=== PATIENT | female | born 1930 | race Two or more races ===

== ENCOUNTER 2021-06-19 09:02 | Emergency (ER) | payer OTHER ==
[~2021-06-19] VITALS: Ht 160 cm; Wt 63.0 kg
[~2021-06-19 09:02] MED LIST: CILOSTAZOL50 MG; GABAPENTIN600 MG; GLIPIZIDE10 MG; HYDROCHLOROTHIA25 MG; IRBESARTAN300 MG; LANTUS100 U/ML; METFORMIN HCL500 MG; METOPROLOL SUCC50 MG; SIMVASTATIN80 MG
[2021-06-19] MEDS ORDERED: FEMARA2.5 MG (09:15)
== END 2021-06-19 12:21 | disposition home or self-care (01) ==
LOC: ER 09:02
DX: J45.998 Other asthma (principal); Z03.818 Encounter for observation for suspected exposure to other biological agents ruled out; R05.9 Cough, unspecified